=== PATIENT | female | born 1990 ===

== ENCOUNTER 2016-07-14 21:14 | Emergency (ER) | payer MEDICAID ==
[2016-07-14 21:14] VITALS: BMI 23.6
[2016-07-14 21:27] VITALS: RESP 16
[2016-07-14] MEDS ORDERED: Sodium Chloride 0.9% 1,000 ML IV ONE (21:34)
--- NOTE | 2016-07-14 21:46 | C.PDOC ---
History Of Present Illness 26 year old patient, with a past medical history of prior kidney infection, presents to the ED complaining of suprapubic discomfort for the past 1 week. She also complains of right flank pain and fever every day for the past week. Patient has a frequent history of kidney infections where UTIs progress to pyelonephritis. In December 2015, she was admitted for 2 weeks. Patient states she didn't want to be hospitalized again so she put off getting evaluated for her symptoms. Patient notes she has nausea and vomiting, but has been able to tolerate medications and food. Patient denies vaginal bleeding, vaginal discharge, irregularities with her menstrual cycle, numbness, weakness, or incontinence. Time Seen by Provider: 07/14/16 21:31 Chief Complaint (Nursing): Abdominal Pain History Per: Patient History/Exam Limitations: no limitations Onset/Duration Of Symptoms: Other (1 week) Context: Other Severity: Mild Pain Scale Rating Of: 3 Location Of Pain/Discomfort: Suprapubic Radiation Of Pain To:: Flank (right) Quality Of Discomfort: "Pain" Associated Symptoms: Nausea, Vomiting Exacerbating Factors: None Alleviating Factors: None Last Bowel Movement: Today Recent travel outside of the [place]: No Abnormal Vaginal Bleeding: No Past Medical History Reviewed: Historical Data, Nursing Documentation, Vital Signs Vital Signs: Last Vital Signs Temp 98.2 F 07/14/16 21:24 Pulse 75 07/14/16 21:24 Resp 16 07/14/16 21:24 BP 110/76 07/14/16 21:24 Pulse Ox 100 07/15/16 00:03 - Medical History PMH: Anxiety, Chronic Kidney Disease Surgical History: Appendectomy - [facility] Procedures ASPIRAT CURET-POST DELIV (10/09/12) CL REDUC DISLOC-SHOULDER (07/31/13) INJECT/INFUSE NEC (01/29/14) ULTRASONOGRAPHY OF HEART WITH AORTA, TRANSESOPHAGEAL (12/26/15) Family History: States: Diabetes - Social History Hx Tobacco Use: Yes (1/2 pack a day) Hx Alcohol Use: Yes Hx Substance Use: No - Immunization History Hx Tetanus Toxoid Vaccination: No Hx Influenza Vaccination: No Hx Pneumococcal Vaccination: No Review Of Systems Except As Marked, All Systems Reviewed And Found Negative. Constitutional: Positive for: Fever Gastrointestinal: Positive for: Nausea, Vomiting, Abdominal Pain (suprapubic), Other (right flank pain) Genitourinary: Negative for: Incontinence, Vaginal Discharge, Vaginal Bleeding Neurological: Negative for: Weakness, Numbness Physical Exam - Physical Exam Appears: Non-toxic, No Acute Distress Skin: Warm, Dry Head: Atraumatic, Normacephalic Oral Mucosa: Moist Neck: Normal ROM, Supple Chest: Symmetrical Cardiovascular: Rhythm Regular Respiratory: Normal Breath Sounds, No Rales, No Rhonchi, No Wheezing Gastrointestinal/Abdominal: Soft, Tenderness (mild suprapubic), No Guarding, No Rebound Back: CVA Tenderness (mild right), No Vertebral Tenderness, No Paraspinal Tenderness Extremity: Normal ROM Neurological/Psych: Oriented x3, Normal Speech, Normal Cognition, Normal Motor, Normal Sensation Gait: Steady ED Course And Treatment - Laboratory Results Result Diagrams: 07/14/16 21:46 07/14/16 21:46 Lab Interpretation: Abnormal (WBC 12.1 with left shift on diff. Urine unremarkable) Urine POC: Negative O2 Sat by Pulse Oximetry: 100 (room air) Pulse Ox Interpretation: Normal Medical Decision Making Medical Decision Making: Plan: * Abdomen/Pelvis CT * Labs * Morphine * IV fluids Disposition - Disposition Disposition Time: 00:15 Condition: STABLE - Clinical Impression Clinical Impression: Flank pain, acute - Scribe Statement The provider has reviewed the documentation as recorded by the Scribaden Reyes Provider Attestation: All medical record entries made by the Scribe were at my direction and personally dictated by me. I have reviewed the chart and agree that the record accurately reflects my personal performance of the history, physical exam, medical decision making, and the department course for this patient. I have also personally directed, reviewed, and agree with the discharge instructions and disposition. Physician Patient Turnover Patient Signed Over To: Drew Abraham Handoff Comments: pending CT
[2016-07-14 21:50] LABS: BASO # 0.1 K/uL (0.0-0.2); BASO % 0.5 % (0.0-2.0); EOS # 0.1 K/uL (0.0-0.7); EOS % 0.4 % (0.0-4.0); HEMATOCRIT 38.3 % (34.0-47.0); LYMPH # 1.7 K/uL (1.0-4.3); LYMPH % 13.9 % (20.0-40.0); MEAN CELL VOLUME 89.8 fL (81.0-99.0); MEAN CORPUSCULAR HEMOGLOBIN 29.9 pg (27.0-31.0); MEAN CORPUSCULAR HGB CONC 33.3 g/dL (33.0-37.0); MEAN PLATELET VOLUME 7.5 fL (7.2-11.7); MONO # 0.5 K/uL (0.0-0.8); MONO % 4.4 % (0.0-10.0); RED CELL DISTRIBUTION WIDTH 14.3 % (11.5-14.5); WHITE BLOOD COUNT 12.1 K/uL (4.8-10.8)
[2016-07-14 21:58] LABS: CHLORIDE 104 mmol/L (98-107); SODIUM 139 mmol/L (132-148)
[2016-07-14 21:59] LABS: POTASSIUM 3.7 mmol/L (3.6-5.2)
[2016-07-14 22:01] LABS: ALB/GLOB RATIO 1.4 (1.0-2.1); ALKALINE PHOSPHATASE 62 U/L (38-126); AST/SGOT 17 U/L (14-36); BILIRUBIN,TOTAL 0.9 mg/dL (0.2-1.3); BLOOD UREA NITROGEN 10 mg/dL (7-17); CARBON DIOXIDE 24 mmol/L (22-30); GFR AFRICAN-AMERICAN > 60; TOTAL PROTEIN 7.7 g/dL (6.3-8.3)
[2016-07-14 22:02] LABS: ALT/SGPT 19 U/L (9-52); CALCIUM 8.5 mg/dl (8.6-10.4); GLUCOSE,RANDOM 92 mg/dL (65-105)
[2016-07-14 23:28] LABS: RBC URINE 1 /hpf (0-3); URINE BACTERIA OCC (<OCC); URINE BILIRUBIN NEGATIVE (NEGATIVE); URINE BLOOD NEGATIVE (NEGATIVE); URINE COLOR Yellow (YELLOW); URINE GLUCOSE (UA) NORMAL (Normal); URINE KETONE NEGATIVE (NEGATIVE); URINE LEUKOCYTE ESTERASE NEG Leu/uL (Negative); URINE PROTEIN NEGATIVE (NEGATIVE); URINE UROBILINOGEN NORMAL mg/dL (0.2-1.0); WBC URINE 3 /hpf (0-5)
--- NOTE | 2016-07-15 01:19 | CT ---
EXAM: CT Abdomen and Pelvis Without Intravenous Contrast CLINICAL HISTORY: 26 years old, female; Pain; Abdominal pain; Flank; Right; Additional info: Abd pain TECHNIQUE: Axial computed tomography images of the abdomen and pelvis without intravenous contrast. This CT exam was performed using one or more of the following dose reduction techniques: automated exposure control, adjustment of the mA and/or kV according to patient size, and/or use of iterative reconstruction technique. Coronal and sagittal reformatted images were created and reviewed. EXAM DATE/TIME: 07/14/2016 9:34 PM COMPARISON: US - PREG 1ST TRIMESTER/OB TV 06/16/2015 10:36:18 AM FINDINGS: Umbilical piercing. The liver, spleen, gallbladder and pancreas appear grossly normal on this non-contrast study. No perinephric stranding. No hydronephrosis. No obstructing calculi. The bowel appears grossly normal. Nonvisualization of the appendix with cecal clips. Presumably the patient has undergone appendectomy. Small free fluid pelvis. Slight haziness surrounding the lower uterine segment/cervix at least partially due to motion. Superimposed inflammatory process is possible. Limited evaluation of the ovaries without contrast. IMPRESSION: Motion through the deep pelvis producing haziness surrounding the lower uterine segment. Superimposed infectious/inflammatory process cannot be excluded.Clinical correlation is recommended.
[2016-07-15] MEDS ORDERED: cefTRIAXone (Rocephin) 250 mg Inj IVPB STA (01:51)
[2016-07-15 03:10] VITALS: BP 105/62; PULSE 73; TEMP 98.1; O2SAT 100
== END 2016-07-15 03:10 | disposition home or self-care (01) ==
LOC: C.ER 21:14
DX: R10.30 Lower abdominal pain, unspecified (principal)
CPT/HCPCS: 74176; 80053; 81001; 83690; 84703; 85025; 87040; 87086; 87491; 87591; 96374; 99284; J0696; J2270; J7040

== ENCOUNTER 2016-08-29 18:54 | Emergency (ER) | payer MEDICAID ==
[2016-08-29 18:54] VITALS: BMI 23.6
[2016-08-29 19:02] VITALS: TEMP 97.9
[2016-08-29 20:06] LABS: HCG,QUALITATIVE URINE POSITIVE (NEGATIVE)
[2016-08-29 20:11] LABS: SQUAMOUS EPITHIAL 6 /hpf (0-5); URINE BACTERIA RARE (<OCC); URINE BILIRUBIN NEGATIVE (NEGATIVE); URINE BLOOD NEGATIVE (NEGATIVE); URINE CLARITY Hazy (Clear); URINE COLOR Amber (YELLOW); URINE GLUCOSE (UA) NORMAL (Normal); URINE LEUKOCYTE ESTERASE TRACE Leu/uL (Negative); URINE NITRATE NEGATIVE (NEGATIVE); URINE PROTEIN 1+ mg/dL (NEGATIVE)
[2016-08-29] MEDS ORDERED: Sodium Chloride 0.9% 1,000 ML IV ONE (20:32)
[2016-08-29] MEDS ORDERED: Sodium Chloride 0.9% 1,000 ML ONE (20:50)
[2016-08-29 20:53] LABS: BASO # 0.1 K/uL (0.0-0.2); BASO % 0.9 % (0.0-2.0); EOS # 0.1 K/uL (0.0-0.7); EOS % 1.1 % (0.0-4.0); HEMOGLOBIN 13.3 g/dL (11.0-16.0); LYMPH # 2.5 K/uL (1.0-4.3); LYMPH % 31.3 % (20.0-40.0); MEAN CELL VOLUME 90.3 fL (81.0-99.0); MEAN CORPUSCULAR HEMOGLOBIN 31.5 pg (27.0-31.0); MEAN CORPUSCULAR HGB CONC 34.9 g/dL (33.0-37.0); MEAN PLATELET VOLUME 9.3 fL (7.2-11.7); MONO # 0.5 K/uL (0.0-0.8); MONO % 6.3 % (0.0-10.0); NEUT # 4.7 K/uL (1.8-7.0); NEUT % 60.4 % (50.0-75.0); NRBC % 0.1 % (0.0-2.0); RBC 4.2 Mil/uL (3.80-5.20); RED CELL DISTRIBUTION WIDTH 13.5 % (11.5-14.5); WHITE BLOOD COUNT 7.8 K/uL (4.8-10.8)
--- NOTE | 2016-08-29 20:56 | C.PDOC ---
History Of Present Illness 26 year old female who presents to the ER with a complaint of vomiting, PO intolerance, and abdominal pain for the past 3 days. Patient states she has a Hx of pylonephritis; she reports the pain feels similar to previous episodes. Denies fever, dysuria, or hematuria. Time Seen by Provider: 08/29/16 19:59 Chief Complaint (Nursing): GI Problem History Per: Patient History/Exam Limitations: no limitations Onset/Duration Of Symptoms: Days (3) Current Symptoms Are (Timing): Still Present Location Of Pain/Discomfort: RUQ Radiation Of Pain To:: None Quality Of Discomfort: Unable To Describe Associated Symptoms: Vomiting. denies: Fever, Urinary Symptoms Exacerbating Factors: None Alleviating Factors: None Recent travel outside of the [place]: No Abnormal Vaginal Bleeding: No Past Medical History Vital Signs: Last Vital Signs Temp 97.9 F 08/29/16 19:56 Pulse 63 08/29/16 19:56 Resp 18 08/29/16 19:56 BP 101/70 08/29/16 19:56 Pulse Ox 97 08/29/16 23:05 - Medical History PMH: Anxiety, Chronic Kidney Disease Surgical History: Appendectomy - [facility] Procedures ASPIRAT CURET-POST DELIV (10/09/12) CL REDUC DISLOC-SHOULDER (07/31/13) INJECT/INFUSE NEC (01/29/14) ULTRASONOGRAPHY OF HEART WITH AORTA, TRANSESOPHAGEAL (12/26/15) Family History: States: Diabetes - Social History Hx Tobacco Use: Yes (1/2 pack a day) Hx Alcohol Use: Yes Hx Substance Use: No - Immunization History Hx Tetanus Toxoid Vaccination: No Hx Influenza Vaccination: No Hx Pneumococcal Vaccination: No Review Of Systems Constitutional: Negative for: Fever Gastrointestinal: Positive for: Vomiting, Abdominal Pain Genitourinary: Negative for: Dysuria, Hematuria Physical Exam - Physical Exam Appears: Non-toxic Skin: Normal Color, Warm, Dry Head: Atraumatic, Normacephalic Oral Mucosa: Moist Chest: Symmetrical, No Tenderness Cardiovascular: Rhythm Regular, No Murmur Respiratory: Normal Breath Sounds, No Rales, No Rhonchi, No Wheezing Gastrointestinal/Abdominal: Soft, Tenderness (RUQ) Back: CVA Tenderness (Right) Neurological/Psych: Oriented x3, Normal Speech, Normal Cognition ED Course And Treatment - Laboratory Results Result Diagrams: 08/29/16 20:46 07/06/17 20:46 O2 Sat by Pulse Oximetry: 97 (Room air) Pulse Ox Interpretation: Normal Medical Decision Making Medical Decision Making: Plans: * Blood work * Abdominal US * Zofran * IV fluids Patient , given IV fluids. Attempted to contact Kristopher, no response. No UTI or Pyelo on urine. UC sent, will start patient on Macrobid. Disposition Counseled Patient/Family Regarding: Studies Performed, Diagnosis, Need For Followup, Rx Given - Disposition Referrals: Stan Summers, RADHA, [employer] C[employer] INSULATOR [Advanced Practice Nurse] - Disposition: HOME/ ROUTINE Disposition Time: 21:57 Condition: STABLE Prescriptions: Nitrofurantoin Macrocrystals [Macrobid] 1 cap PO BID #14 cap Instructions: (ED), Hyperemesis Gravidarum (ED) Forms: Work Excuse - POA Present On Arrival: None - Clinical Impression Clinical Impression: Hyperemesis gravidarum - Scribe Statement The provider has reviewed the documentation as recorded by the Scribaden Taylor All medical record entries made by the Pallaviibaden were at my direction and personally dictated by me. I have reviewed the chart and agree that the record accurately reflects my personal performance of the history, physical exam, medical decision making, and the department course for this patient. I have also personally directed, reviewed, and agree with the discharge instructions and disposition.
[2016-08-29 21:06] LABS: ALBUMIN 4.4 g/dL (3.5-5.0)
[2016-08-29 21:09] LABS: ALB/GLOB RATIO 1.2 (1.0-2.1); AST/SGOT 41 U/L (14-36); GFR AFRICAN-AMERICAN > 60; GFR NON-AFRICAN AMERICAN > 60
[2016-08-29 21:10] LABS: ALT/SGPT 7 U/L (9-52); BLOOD UREA NITROGEN 6 mg/dL (7-17); CALCIUM 9.4 mg/dl (8.6-10.4)
[2016-08-29] MEDS ORDERED: Dextrose 5%/0.45% NS 1,000 ML IV ONE ×2 (21:55→22:30)
--- NOTE | 2016-08-29 22:26 | US ---
EXAM: US Abdomen Limited, Right Upper Quadrant CLINICAL HISTORY: 26 years old, female; Pain; Abdominal pain; Generalized; Additional info: Abd pain TECHNIQUE: Real-time ultrasound of the right upper quadrant with image documentation. COMPARISON: No relevant prior studies available. FINDINGS: Liver: Normal echogenicity. No mass. No intrahepatic bile duct dilatation. Gallbladder: No gallstones. No wall thickening. No pericholecystic fluid. No sonographic Berger's sign. Common bile duct: No dilatation. No stones. Pancreas: Unremarkable as visualized. Right kidney: Normal echogenicity. No hydronephrosis. IMPRESSION: 1.No acute findings. 2.Non-acute findings are described above.
[2016-08-29 23:45] VITALS: BP 102/59; PULSE 72; RESP 14; O2SAT 99
== END 2016-08-29 23:46 | disposition home or self-care (01) ==
LOC: C.ER 18:54
DX: O21.0 Mild hyperemesis gravidarum (principal); Z3A.00 Weeks of gestation of pregnancy not specified
CPT/HCPCS: 76705; 80053; 81001; 84702; 84703; 85025; 87086; 96361; 96374; 99284; J2405; J7040; J7042

== ENCOUNTER 2016-12-16 18:18 | Emergency (ER) | payer MEDICAID, OTHER ==
[2016-12-16 18:18] VITALS: BMI 22.8
[2016-12-16 18:32] VITALS: BP 94/58; PULSE 89; RESP 18; TEMP 97.9; O2SAT 100
--- NOTE | 2016-12-16 20:22 | C.PDOC ---
History Of Present Illness 26 year old female presents to the ED for evaluation of cough, congestion, and shortness of breath which began around 1 week ago. Patient describes her symptoms as a "burning sensation" in her chest. Patient states she was evaluated at [facility] and was discharged with a pump. Patient also reports that she had a headache earlier today and denies fever, chills, nausea, vomiting. (Alexia Daniel) History Per: Patient History/Exam Limitations: no limitations Onset/Duration Of Symptoms: Days (1 week) Current Symptoms Are (Timing): Still Present Sick Contacts (Context): None Associated Symptoms: Cough. denies: Fever, Chills, Nausea, Vomiting Ear Symptoms: Bilateral: None Additional History Per: Patient Time Seen by Provider: 12/16/16 18:59 Chief Complaint (Nursing): Cough, Cold, Congestion Past Medical History Reviewed: Historical Data, Nursing Documentation, Vital Signs - Medical History PMH: Anxiety, Chronic Kidney Disease Denies: Arthritis, Asthma, Atrial Fibrillation, Bipolar Disorder, Bronchitis , Cardia Arrhythmia, CHF, COPD, Crohn's Disease, Dementia, Depression, Diverticulitis, Emphysema, Fractures, Gastritis, Gall Bladder Disease, HIV, HTN , Hypercholesterolemia, Hyperthyroidism, Hypothyroidism, Migraine, Mitral Valve Prolapse, Multiple Sclerosis, Osteoporosis, Pancreatitis, Parkinson's Disease, Peripheral Edema, Pneumonia, Post Traumatic Stress Disorder, Pulmonary Embolism , Rheumatoid Arthritis, Schizophrenia, Seizures, Sickle Cell Disease, Sexually Transmitted Disease, Sleep Apnea, TIA Surgical History: Appendectomy Denies: Pacemaker Family History: States: Diabetes - Social History Hx Tobacco Use: Yes (1/2 pack a day) Hx Alcohol Use: Yes Hx Substance Use: No - Immunization History Hx Tetanus Toxoid Vaccination: No Hx Influenza Vaccination: No Hx Pneumococcal Vaccination: No Vital Signs: Last Vital Signs Temp 97.9 F 12/16/16 18:29 Pulse 89 12/16/16 18:29 Resp 18 12/16/16 18:29 BP 94/58 L 12/16/16 18:29 Pulse Ox 100 12/16/16 20:50 - [facility] Procedures ASPIRAT CURET-POST DELIV (10/09/12) CL REDUC DISLOC-SHOULDER (07/31/13) INJECT/INFUSE NEC (01/29/14) ULTRASONOGRAPHY OF HEART WITH AORTA, TRANSESOPHAGEAL (12/26/15) Review Of Systems Constitutional: Negative for: Fever, Chills Respiratory: Positive for: Cough Gastrointestinal: Negative for: Nausea, Vomiting Neurological: Positive for: Headache Physical Exam - Physical Exam Appears: Non-toxic, No Acute Distress Skin: Normal Color, Warm, Dry Head: Atraumatic, Tenderness (sinus ) Eye(s): bilateral: Normal Inspection Ear(s): Bilateral: Normal Nose: Normal, No Discharge Oral Mucosa: Moist Throat: Normal, No Erythema, No Exudate Neck: Normal ROM, Supple Chest: Symmetrical, No Deformity, No Tenderness Cardiovascular: Rhythm Regular, No Murmur Respiratory: Normal Breath Sounds, No Rales, No Rhonchi, No Wheezing Back: Normal Inspection, No Vertebral Tenderness, No Paraspinal Tenderness Extremity: Normal ROM, Capillary Refill (less than 2 seconds ) Neurological/Psych: Oriented x3, Normal Speech, Normal Cognition Gait: Steady ED Course And Treatment O2 Sat by Pulse Oximetry: 100 (on RA) Pulse Ox Interpretation: Normal Medical Decision Making Medical Decision Making: Progress: Claritin PO and Prednisone PO administered. (Alexia Daniel) Disposition - Disposition Disposition Time: 20:45 - Disposition Referrals: Gopal Summers DO [Doctor Osteopathy] - Disposition: HOME/ ROUTINE Condition: GOOD Additional Instructions: Follow up with the medical doctor within 1-2 days. Return if worsened. Prescriptions: Loratadine [Claritin] 10 mg PO DAILY #10 tab predniSONE [Prednisone] 20 mg PO BID #10 tab Instructions: Acute Bronchitis (ED) Forms: [facility] (Azeri), Work Excuse - Clinical Impression Clinical Impression: Bronchitis - PA / ABALONE DIVER / Resident Statement / has reviewed & agrees with the documentation as recorded. - Scribe Statement The provider has reviewed the documentation as recorded by the Scribe (Mary Reyes) - Scribe Statement All medical record entries made by the Scribe were at my direction and personally dictated by me. I have reviewed the chart and agree that the record accurately reflects my personal performance of the history, physical exam, medical decision making, and the department course for this patient. I have also personally directed, reviewed, and agree with the discharge instructions and disposition. (Alexia Daniel)
== END 2016-12-16 20:55 | disposition home or self-care (01) ==
LOC: C.ER 18:18
DX: J40 Bronchitis, not specified as acute or chronic (principal); N18.9 Chronic kidney disease, unspecified; Z87.891 Personal history of nicotine dependence

== ENCOUNTER 2017-01-28 15:47 | Emergency (ER) | payer MEDICAID ==
[2017-01-28 15:48] VITALS: BMI 22.8
[2017-01-28 15:59] VITALS: RESP 18; O2SAT 99
[2017-01-28 18:46] VITALS: BP 102/65; PULSE 74; TEMP 98.5
--- NOTE | 2017-01-28 18:51 | C.PDOC ---
History Of Present Illness 26 year old female presents to the ED for evaluation of right sided neck pain, arm tingling sensation since yesterday. Patient reports yesterday she dislocated her shoulder while trying to reach for a pillow, went to [facility] and reports waiting for approximately 2 hours before her shoulder was reduced, her arm was placed on a sling and she was d/c with no instructions to follow up with a orthopedic doctor. Patient went to her PMD for follow up who sent her here to evaluation. Patient denies injury, trauma , or fall. Chief Complaint (Nursing): Upper Extremity Problem/Injury History Per: Patient History/Exam Limitations: no limitations Onset/Duration Of Symptoms: Hrs Current Symptoms Are (Timing): Still Present Quality: "Pain" Recent travel outside of the [place]: No Additional History Per: Patient Past Medical History Reviewed: Historical Data, Nursing Documentation, Vital Signs Vital Signs: Last Vital Signs Temp 98.5 F 01/28/17 18:45 Pulse 74 01/28/17 18:45 Resp 18 01/28/17 18:45 BP 102/65 01/28/17 18:45 Pulse Ox 99 01/28/17 18:58 - Medical History PMH: Anxiety, Chronic Kidney Disease Denies: Arthritis, Asthma, Atrial Fibrillation, Bipolar Disorder, Bronchitis , Cardia Arrhythmia, CHF, COPD, Crohn's Disease, Dementia, Depression, Diverticulitis, Emphysema, Fractures, Gastritis, Gall Bladder Disease, HIV, HTN , Hypercholesterolemia, Hyperthyroidism, Hypothyroidism, Migraine, Mitral Valve Prolapse, Multiple Sclerosis, Osteoporosis, Pancreatitis, Parkinson's Disease, Peripheral Edema, Pneumonia, Post Traumatic Stress Disorder, Pulmonary Embolism , Rheumatoid Arthritis, Schizophrenia, Seizures, Sickle Cell Disease, Sexually Transmitted Disease, Sleep Apnea, TIA Surgical History: Appendectomy Denies: Pacemaker - [facility] Procedures ASPIRAT CURET-POST DELIV (10/09/12) CL REDUC DISLOC-SHOULDER (07/31/13) INJECT/INFUSE NEC (01/29/14) ULTRASONOGRAPHY OF HEART WITH AORTA, TRANSESOPHAGEAL (12/26/15) Family History: States: Diabetes - Social History Hx Tobacco Use: Yes (1/2 pack a day) Hx Alcohol Use: Yes Hx Substance Use: No - Immunization History Hx Tetanus Toxoid Vaccination: No Hx Influenza Vaccination: No Hx Pneumococcal Vaccination: No Review Of Systems Constitutional: Negative for: Fever, Chills Cardiovascular: Negative for: Chest Pain, Palpitations Respiratory: Negative for: Cough, Shortness of Breath Gastrointestinal: Negative for: Nausea, Vomiting, Abdominal Pain Musculoskeletal: Positive for: Neck Pain Neurological: Positive for: Numbness, Other (Tingling right arm). Negative for : Weakness, Headache Physical Exam - Physical Exam Appears: Non-toxic, No Acute Distress Skin: Normal Color, Warm, Dry Head: Atraumatic, Normacephalic Nose: No Discharge Oral Mucosa: Moist Neck: Normal ROM, Supple Chest: Symmetrical Cardiovascular: Rhythm Regular, No Murmur Respiratory: Normal Breath Sounds, No Rales, No Rhonchi, No Wheezing Gastrointestinal/Abdominal: Soft, No Tenderness Extremity: Normal ROM (Of right shoulder, good director of assisted living), Capillary Refill (less than 2 sec), No Deformity, Other (Right arm on a sling) Pulses: Left Brachial: Normal, Right Brachial: Normal, Left Radial: Normal, Right Radial: Normal Neurological/Psych: Oriented x3, Normal Speech, Normal Cognition, Normal Motor ( Good strength in right hand), Normal Sensation (Subjective numbness inconsistent with dermatomes distribution ) Gait: Steady ED Course And Treatment O2 Sat by Pulse Oximetry: 99 (On RA) Pulse Ox Interpretation: Normal Medical Decision Making Medical Decision Making: Spoke with orthopedics air conditioning service technician who recommended pain management, muscle relaxant and to follow with [facility] orthopedic. Patient understands the instructions and is stable enough for d/c. Disposition - Disposition Referrals: Martínez Amaral III, MD [Staff Provider] - Disposition: HOME/ ROUTINE Disposition Time: 18:30 Condition: GOOD Additional Instructions: Thank you for letting us take care of you today. The emergency medical care you received today was directed at your acute symptoms. If you were prescribed any medication, please fill it and take as directed. It may take several days for your symptoms to resolve. Return to the Emergency Department if your symptoms worsen, do not improve, or if you have any other problems. Please contact your doctor or call one of the physicians/clinics you have been referred to that are listed on the Patient Visit Information form that is included in your discharge packet. Bring any paperwork you were given at discharge with you along with any medications you are taking to your follow up visit. Our treatment cannot replace ongoing medical care by a primary care provider (PCP) outside of the emergency department. Thank you for allowing the [facility] team to be part of your care today. Followup with your orthopedic doctor or our orthopedic doctor in 2-3 days for re -evaluation and further management. Prescriptions: Cyclobenzaprine [Cyclobenzaprine HCl] 10 mg PO Q8 PRN #20 tab PRN Reason: Muscle Spasm Instructions: Shoulder Dislocation (ED), Arm Pain (ED) Forms: [employer] (Belarusian) - Clinical Impression Clinical Impression: Arm pain - Scribe Statement The provider has reviewed the documentation as recorded by the Scribe Lew Lynch All medical record entries made by the Scribe were at my direction and personally dictated by me. I have reviewed the chart and agree that the record accurately reflects my personal performance of the history, physical exam, medical decision making, and the department course for this patient. I have also personally directed, reviewed, and agree with the discharge instructions and disposition.
== END 2017-01-28 18:46 | disposition home or self-care (01) ==
LOC: C.ER 15:47
DX: M79.601 Pain in right arm (principal)

== ENCOUNTER 2017-08-06 12:27 | Emergency (ER) | payer MEDICAID ==
[2017-08-06 12:28] VITALS: BMI 22.8
[2017-08-06 12:41] VITALS: RESP 18
--- NOTE | 2017-08-06 14:01 | C.PDOC ---
History Of Present Illness 27 y/o female with PMHx of pyelonephritis present to ED for complaints of constant epigastric abdominal pain associated with nausea and vomiting that began several days ago. Patient states she saw her PCP 1 week ago, was told her exam was normal. Patient states after the visit she began to experience fever and chills, then went back to PCP on Friday - strep test and test were done, both were negative. Patient also reports experiencing constant headache since yesterday. She denies dysuria/hematuria, flank pain, back pain, chest pain, SOB, rash. Time Seen by Provider: 08/06/17 13:07 Chief Complaint (Nursing): Abdominal Pain History Per: Patient History/Exam Limitations: no limitations Onset/Duration Of Symptoms: Days Current Symptoms Are (Timing): Still Present Severity: Moderate Pain Scale Rating Of: 9 Location Of Pain/Discomfort: Epigastric Radiation Of Pain To:: None Quality Of Discomfort: "Pain" Associated Symptoms: Nausea, Vomiting, Loss Of Appetite. denies: Fever, Chills , Diarrhea, Back Pain, Urinary Symptoms Exacerbating Factors: None Alleviating Factors: None Last Bowel Movement: Today Abnormal Vaginal Bleeding: No Last Menstral Period: 07/08/17 Past Medical History Reviewed: Historical Data, Nursing Documentation, Vital Signs Vital Signs: Last Vital Signs Temp 99.0 F 08/06/17 18:07 Pulse 60 08/06/17 18:07 Resp 18 08/06/17 18:07 BP 107/63 08/06/17 18:07 Pulse Ox 99 08/06/17 18:07 - Medical History PMH: Anxiety, Chronic Kidney Disease Surgical History: Appendectomy - [facility] Procedures ASPIRAT CURET-POST DELIV (10/09/12) CL REDUC DISLOC-SHOULDER (07/31/13) INJECT/INFUSE NEC (01/29/14) ULTRASONOGRAPHY OF HEART WITH AORTA, TRANSESOPHAGEAL (12/26/15) Family History: States: Diabetes - Social History Hx Tobacco Use: Yes (1/2 pack a day) Hx Alcohol Use: Yes Hx Substance Use: No - Immunization History Hx Tetanus Toxoid Vaccination: No Hx Influenza Vaccination: No Hx Pneumococcal Vaccination: No Review Of Systems Constitutional: Negative for: Fever, Chills Cardiovascular: Negative for: Chest Pain Respiratory: Negative for: Cough, Shortness of Breath Gastrointestinal: Positive for: Nausea, Vomiting, Abdominal Pain (Epigastric ). Negative for: Diarrhea Genitourinary: Negative for: Dysuria, Hematuria Skin: Negative for: Rash Neurological: Positive for: Headache. Negative for: Weakness, Numbness, Incoordination, Change in Speech, Confusion, Seizures, Altered Mental Status, Dizziness Physical Exam - Physical Exam Appears: Well, Non-toxic, No Acute Distress Skin: Warm, Dry, No Rash Head: Atraumatic, Normacephalic Eye(s): bilateral: Normal Inspection, PERRL, EOMI Ear(s): Bilateral: Normal Oral Mucosa: Moist Throat: Normal, No Erythema, No Exudate Neck: Normal, Supple, Other (no meningismus) Cardiovascular: Rhythm Regular, No Murmur Respiratory: Normal Breath Sounds, No Decreased Breath Sounds, No Rales, No Rhonchi, No Wheezing Gastrointestinal/Abdominal: Bowel Sounds, Soft, Tenderness (Epigastric mild TTP , (-) Berger's, (-) McBurney's), No Guarding, No Rebound Back: No CVA Tenderness Extremity: Normal ROM, No Deformity Extremity: Bilateral: Atraumatic, Normal Color And Temperature, Normal ROM Neurological/Psych: Oriented x3, Other Gait: Steady ED Course And Treatment - Laboratory Results Result Diagrams: 08/06/17 14:06 08/06/17 14:06 O2 Sat by Pulse Oximetry: 100 (RA) Pulse Ox Interpretation: Normal Progress Note: Blood work, UA, Upreg ordered and reviewed. Patient given OIV NS bolus, IV Zofran, PO tylenol. On reassessment, patient continues to c/o pain and nausea - IV reglan and IV morphine given (patient has NSAID allergy). Reevaluation Time: 18:20 Reassessment Condition: Improved (On reassessment, patient is resting comfortably and states she feels better. On exam abdomen is soft and nontender. Rx for Zofran given and patient instructed to drink plenty of clear fluids and to follow up with PMD/clinic in 1-2 days. She understands she should return to ED if symptoms worsen.) Disposition Counseled Patient/Family Regarding: Studies Performed, Diagnosis, Need For Followup, Rx Given - Disposition Referrals: Stan Summers, RADHA, PREPRESS PROOFER [Advanced Practice Nurse] - Disposition: HOME/ ROUTINE Disposition Time: 18:20 Condition: STABLE Additional Instructions: FOLLOW UP WITH YOUR DOCTOR IN 1-2 DAYS USE MEDICATION NEEDED DRINK PLENTY OF CLEAR FLUIDS RETURN TO EMERGENCY ROOM IF SYMPTOMS WORSEN Prescriptions: Ondansetron [Zofran Odt] 4 mg PO Q8 PRN #15 odt PRN Reason: Nausea/Vomiting Instructions: Nausea and Vomiting, Adult (DC), Stomach Ache and Stomach Upset Forms: [facility] (Turkmen), Work Excuse Print Language: HUNGARIAN - POA Present On Arrival: None - Clinical Impression Clinical Impression: Nausea & vomiting - Scribe Statement The provider has reviewed the documentation as recorded by the Pallaviibaden Pineda All medical record entries made by the Pallaviibaden were at my direction and personally dictated by me. I have reviewed the chart and agree that the record accurately reflects my personal performance of the history, physical exam, medical decision making, and the department course for this patient. I have also personally directed, reviewed, and agree with the discharge instructions and disposition.
[2017-08-06 14:17] LABS: BASO % 0.4 % (0.0-2.0); EOS % 0.1 % (0.0-4.0); HEMOGLOBIN 13.5 g/dL (11.0-16.0); LYMPH # 1.2 K/uL (1.0-4.3); LYMPH % 10.5 % (20.0-40.0); MEAN CELL VOLUME 88.3 fL (81.0-99.0); MEAN CORPUSCULAR HEMOGLOBIN 30.2 pg (27.0-31.0); MEAN CORPUSCULAR HGB CONC 34.1 g/dL (33.0-37.0); MEAN PLATELET VOLUME 7.5 fL (7.2-11.7); MONO # 0.6 K/uL (0.0-0.8); MONO % 5.1 % (0.0-10.0); NEUT # 9.3 K/uL (1.8-7.0); NEUT % 83.9 % (50.0-75.0); RBC 4.46 Mil/uL (3.80-5.20); RED CELL DISTRIBUTION WIDTH 14.5 % (11.5-14.5)
[2017-08-06] MEDS ORDERED: Sodium Chloride 0.9% 1,000 ML ONE ×2 (14:19→15:37)
[2017-08-06] MEDS: Sodium Chloride 0.9% 1,000 ML IV SCH ×2 (14:25→15:54)
[2017-08-06 14:33] LABS: ALB/GLOB RATIO 1.2 (1.0-2.1); ALBUMIN 4.7 g/dL (3.5-5.0); ALT/SGPT 22 U/L (9-52); AST/SGOT 28 U/L (14-36); BLOOD UREA NITROGEN 9 mg/dL (7-17); CALCIUM 9.8 mg/dl (8.6-10.4); GFR AFRICAN-AMERICAN > 60; GFR NON-AFRICAN AMERICAN > 60; LIPASE 74 U/L (23-300)
[2017-08-06] MEDS ORDERED: Sodium Chloride 0.9% 1,000 ML IV ONE (15:19)
[2017-08-06] MEDS ORDERED: Morphine 4 MG/ML VIAL ONE (15:52)
[2017-08-06 15:59] LABS: SQUAMOUS EPITHIAL < 1 /hpf (0-5); URINE BILIRUBIN NEGATIVE (NEGATIVE); URINE BLOOD NEGATIVE (NEGATIVE); URINE CLARITY Hazy (Clear); URINE COLOR Yellow (YELLOW); URINE GLUCOSE (UA) NORMAL (Normal); URINE HYALINE CAST 0-2 /lpf (0-2); URINE LEUKOCYTE ESTERASE NEG Leu/uL (Negative); URINE PROTEIN 1+ mg/dL (NEGATIVE)
[2017-08-06 18:08] VITALS: BP 107/63; PULSE 60; TEMP 99
[2017-08-08 13:44] VITALS: O2SAT 100
== END 2017-08-06 18:29 | disposition home or self-care (01) ==
LOC: C.ER 12:27
DX: R11.2 Nausea with vomiting, unspecified (principal); N18.9 Chronic kidney disease, unspecified
CPT/HCPCS: 80053; 81001; 83690; 85025; 87086; 96361; 96365; 96375; 99285; J2270; J2405; J2765; J7030

== ENCOUNTER 2017-10-12 13:17 | Emergency (ER) | payer MEDICAID ==
[2017-10-12 13:18] VITALS: BMI 22.8
[2017-10-12 13:25] VITALS: TEMP 97.7
--- NOTE | 2017-10-12 14:22 | C.PDOC ---
History Of Present Illness 27 year old female presents to the emergency department complaining of pain to her left wrist since 3-4 days ago. Patient states the pain worsens with certain movements and does not recall any other injuries. She reports no change in sensation, is right-hand dominant, and has not taken pain medications. Patient denies any weakness or numbness. Time Seen by Provider: 10/12/17 13:26 Chief Complaint (Nursing): Finger,Hand,&Wrist History Per: Patient History/Exam Limitations: no limitations Onset/Duration Of Symptoms: Days Current Symptoms Are (Timing): Still Present Past Medical History Reviewed: Historical Data, Nursing Documentation, Vital Signs Vital Signs: Last Vital Signs Temp 97.7 F 10/12/17 13:22 Pulse 71 10/12/17 14:27 Resp 16 10/12/17 14:27 BP 123/71 10/12/17 14:27 Pulse Ox 100 10/12/17 18:32 - Medical History PMH: Anxiety, Depression, Chronic Kidney Disease Denies: Arthritis, Asthma, Atrial Fibrillation, Bipolar Disorder, Bronchitis , Cardia Arrhythmia, CHF, COPD, Crohn's Disease, Dementia, Diverticulitis, Emphysema, Fractures, Gastritis, Gall Bladder Disease, HIV, HTN, Hypercholesterolemia, Hyperthyroidism, Hypothyroidism, Migraine, Mitral Valve Prolapse, Multiple Sclerosis, Osteoporosis, Pancreatitis, Parkinson's Disease, Peripheral Edema, Pneumonia, Post Traumatic Stress Disorder, Pulmonary Embolism , Rheumatoid Arthritis, Schizophrenia, Seizures, Sickle Cell Disease, Sexually Transmitted Disease, Sleep Apnea, TIA Surgical History: Appendectomy Denies: Pacemaker - [facility] Procedures ASPIRAT CURET-POST DELIV (10/09/12) CL REDUC DISLOC-SHOULDER (07/31/13) INJECT/INFUSE NEC (01/29/14) ULTRASONOGRAPHY OF HEART WITH AORTA, TRANSESOPHAGEAL (12/26/15) Family History: States: No Known Family Hx, Diabetes - Social History Hx Tobacco Use: Yes (1/2 pack a day) Hx Alcohol Use: Yes Hx Substance Use: No - Immunization History Hx Tetanus Toxoid Vaccination: No Hx Influenza Vaccination: No Hx Pneumococcal Vaccination: No Review Of Systems Constitutional: Negative for: Fever, Chills Cardiovascular: Negative for: Chest Pain Respiratory: Negative for: Shortness of Breath Gastrointestinal: Negative for: Nausea, Vomiting Musculoskeletal: Positive for: Other (Left wrist pain) Neurological: Negative for: Weakness, Numbness Physical Exam - Physical Exam Appears: Well, Non-toxic, No Acute Distress Skin: Normal Color, Warm, Dry Head: Atraumatic, Normacephalic Eye(s): bilateral: Normal Inspection, EOMI Nose: Normal Oral Mucosa: Moist Neck: Normal ROM, Supple Chest: Symmetrical Respiratory: No Accessory Muscle Use Extremity: Normal ROM, Tenderness (to dorsal aspect of left wrist ), Capillary Refill (<2 sec), No Swelling Pulses: Left Radial: Normal, Right Radial: Normal Neurological/Psych: Oriented x3, Normal Speech, Normal Sensation, Other (No focal deficits) ED Course And Treatment O2 Sat by Pulse Oximetry: 100 (RA) Pulse Ox Interpretation: Normal - Other Rad Left Wrist X-Ray X-Ray: Read By Radiologist Interpretation: Findings: Productive change along the radial cortex of the distal radius. Clinical correlation. No evidence of acute displaced fracture dislocation. Scattered areas of linear increased attenuation at several phalanges which may be artifact. Clinical correlation. Impression: Productive change along the radial cortex of the distal radius. Clinical correlation. No evidence of acute displaced fracture dislocation. Scattered areas of linear increased attenuation at several phalanges which may be artifact. Clinical correlation. If pain persists, consider MRI. Progress Note: Left wrist x-ray ordered. Tylenol administered. Wrist immobilizer was applied by phlebotomy technologist. On re-evaluation, patient is resting comfortably, and is in no acute distress. Instructed RICE and to follow up with orthopedist in 1-2 days. Disposition - Disposition Referrals: Martínez Amaral III, MD [Staff Provider] - Disposition: HOME/ ROUTINE Disposition Time: 14:21 Condition: STABLE Additional Instructions: Rest, ice and elevate the area. Follow up with the bone doctor in 1-2 days. Instructions: Wrist Sprain (DC) Forms: [employer] (Romansh) - Clinical Impression Clinical Impression: Wrist sprain - PA / GRAIN TRIMMER / Resident Statement MD/DO has reviewed & agrees with the documentation as recorded. - Scribe Statement The provider has reviewed the documentation as recorded by the Scribe All medical record entries made by the Scribe were at my direction and personally dictated by me. I have reviewed the chart and agree that the record accurately reflects my personal performance of the history, physical exam, medical decision making, and the department course for this patient. I have also personally directed, reviewed, and agree with the discharge instructions and disposition.
[2017-10-12 14:28] VITALS: BP 123/71; PULSE 71; RESP 16
--- NOTE | 2017-10-12 14:42 | RAD ---
Left wrist four views History: Pain. Comparison: None available. Findings: Productive change along the radial cortex of the distal radius. Clinical correlation. No evidence of acute displaced fracture dislocation. Scattered areas of linear increased attenuation at several phalanges which may be artifact. Clinical correlation. Impression: Productive change along the radial cortex of the distal radius. Clinical correlation. No evidence of acute displaced fracture dislocation. Scattered areas of linear increased attenuation at several phalanges which may be artifact. Clinical correlation. If pain persists, consider MRI.
[2017-10-12 18:22] VITALS: O2SAT 100
== END 2017-10-12 14:27 | disposition home or self-care (01) ==
LOC: C.ER 13:17
DX: S63.502A Unspecified sprain of left wrist, initial encounter (principal); X58.XXXA Exposure to other specified factors, initial encounter; Y92.9 Unspecified place or not applicable